=== PATIENT | female | born 1995 | race Caucasian/White ===

== ENCOUNTER 2018-07-19 11:37 | Emergency (ER) | payer OTHER ==
[~2018-07-19] VITALS: Ht 172.7 cm; Wt 61.0 kg
[2018-07-19 11:44] VITALS: BP 105/56; PULSE 62; RESP 18; Ht 172.7 cm; Wt 61.0 kg
--- NOTE | 2018-07-19 14:56 | ERD ---
ER Documentation Chief Complaint Chief Complaint just found out , homeless, needs resources HPI 23-year-old female presenting to receive help with [facility] as she just found out she is and she is currently homeless. Patient believes she is about 4 weeks. She was seen at an outside facility 3 days ago and told she had a positive . A1. Denies any pelvic pain and no vaginal bleeding. Does not recall the first day of her last menstrual cycle. Medical history PTSD. NKDA. Surgical history ectopic . Social history denies ROS All systems reviewed and are negative except as per history of present illness. Allergies Allergies: Coded Allergies: No Known Allergy (Unverified , 07/19/18) PMhx/Soc Hx Alcohol Use: No Hx Substance Use: No Hx Tobacco Use: Yes (marijuana) Smoking Status: Current every day smoker FmHx Family History: No diabetes, No coronary disease, No other Physical Exam Vitals Vital Signs Date Temp Pulse Resp B/P (MAP) Pulse Ox O2 O2 Flow FiO2 Time Delivery Rate 07/19/18 98.2 62 18 105/56 100 11:44 (72) Physical Exam GENERAL: The patient is well-appearing, well-nourished, in no acute distress CHEST: Clear to auscultation bilaterally. There are no rales, wheezes or rhonchi. HEART: Regular rate and rhythm. No murmurs, clicks, rubs or gallops. ABDOMEN:Soft, nontender and nondistended. Good bowel sounds. No rebound or guarding. No gross peritonitis. No gross organomegaly or masses. BACK: No midline or flank tenderness. Results 24 hrs Laboratory Tests Test 07/19/18 12:34 07/19/18 12:36 07/19/18 12:55 Bedside Urine pH (LAB) 7.0 Bedside Urine Protein (LAB) Negative Bedside Urine Glucose (UA) Negative Bedside Urine Ketones (LAB) Negative Bedside Urine Blood Trace-lysed Bedside Urine Nitrite (LAB) Negative Bedside Urine Leukocyte Esterase (L Negative POC Beta HCG, Qualitative NEGATIVE Beta HCG, Quantitative 68.6 mIU/ml Procedures/MDM ER course: Urine test is negative. Patient's beta quant level is very low at 64. MDM: 23-year-old female presenting with a presentation of . Patient's is either very early or is an abnormal . Patient is required to return in 2 days or follow-up with [facility] for reevaluation of beta quant levels within 2 days. I have low suspicion for ectopic at this time as patient is not having any pelvic pain and no vaginal bleeding. I do not feel ultrasound was indicated. She was discharged with resources for shelters. I have low suspicion for other abdominal or pelvic emergencies at this time. Urine is negative. Departure Diagnosis: Primary Impression: Condition: Stable Patient Instructions: , New Dx Referrals: [facility] YOU HAVE RECEIVED A MEDICAL SCREENING EXAM AND THE RESULTS INDICATE THAT YOU DO NOT HAVE A CONDITION THAT REQUIRES URGENT TREATMENT IN THE EMERGENCY DEPARTMENT. FURTHER EVALUATION AND TREATMENT OF YOUR CONDITION CAN WAIT UNTIL YOU ARE SEEN IN YOUR DOCTORS OFFICE WITHIN THE NEXT 1-2 DAYS. IT IS YOUR RESPONSIBILITY TO MAKE AN APPOINTMENT FOR FOLOW-UP CARE. IF YOU HAVE A PRIMARY DOCTOR --you should call your primary doctor and schedule an appointment IF YOU DO NOT HAVE A PRIMARY DOCTOR YOU CAN CALL OUR PHYSICIAN REFERRAL HOTLINE AT IF YOU CAN NOT AFFORD TO SEE A PHYSICIAN YOU CAN CHOSE FROM THE FOLLOWING [facility] [address] [facility]. [facility] [address] [facility] [facility] [address] [facility] [facility] [address] [facility] [address] [facility] [facility]. [address] Additional Instructions: FOLLOW UP WITH YOUR PRIMARY CARE PHYSICIAN TOMORROW.Return to this facility if you are not improving as expected. SVITLANA MARIN PA-C Jul 19, 2018 14:56
== END 2018-07-19 14:41 | disposition home or self-care (01) ==
LOC: FTE 11:37
DX: Z32.01 Encounter for pregnancy test, result positive (principal); F17.210 Nicotine dependence, cigarettes, uncomplicated; Z59.0 Homelessness
CPT/HCPCS: 81003; 81025; 84702; Z7502; 99282